=== PATIENT | male | born 1995 | race Caucasian/White ===

== ENCOUNTER 2016-10-17 19:51 | Emergency (ER) | payer OTHER ==
[~2016-10-17] VITALS: Wt 69.5 kg
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
[2016-10-17] MEDS ORDERED: IOHEXOL 300MG/ML 150 ML BTL ONE (22:34)
[2016-10-17] MEDS ORDERED: SOD CHLORIDE 0.9% 100 ML ONE (22:34)
[2016-10-17 22:38] LABS: CALCIUM 9.3 mg/dl (8.4-10.2); CREATININE 0.75 mg/dl (0.61-1.24); POTASSIUM 3.6 mmol/L (3.5-5.1)
[2016-10-17] MEDS ORDERED: HYDR-906 PO (22:57)
--- NOTE | 2016-10-18 00:14 | RADRPT ---
PROCEDURE: CT Abdomen and pelvis with contrast. CLINICAL INDICATION: Abdominal pain. TECHNIQUE: CT scan of the abdomen and pelvis with contrast was performed on a multi-detector high -resolution CT scanner. The patient was scanned following the uncomplicated administration of 90 cc of Omnipaque 300 intravenous contrast. Coronal and sagittal reformatted images were obtained from the axial source images. Images were reviewed on a high-resolution PACS workstation. One or more of the following dose reduction techniques were used: - Automated exposure control. - Adjustment of the mA and/or kV according to patient size. - Use of iterative reconstruction technique. Exam CTD/vol = 8.13 mGy. Total exam DLP = 434.86 mGy-cm. COMPARISON: None. FINDINGS: Evaluation of the lung bases demonstrates no pleural or parenchymal disease. Abdomen: The liver is normal in size. There is no focal mass or dilatation of the biliary tree. T he gallbladder is not distended. The spleen, pancreas and bilateral adrenal glands are within tim l limits. Bilateral kidneys are normal in size with symmetric enhancement. There is no focal mass, hydronephrosis or hydroureter. There is no retroperitoneal adenopathy. The abdominal aorta is of normal caliber. There is no abnormal bowel wall thickening or distension. There is no bowel obstruction or free air . A normal appendix is identified. There is no diverticulosis or diverticulitis. There is no asci bill. Pelvis: The bladder is contracted. The prostate and seminal vesicles are within normal limits. Th ere is no significant pelvic adenopathy or free fluid. Evaluation of the osseous structures demonstrates no suspicious lytic or blastic lesion. IMPRESSION: No acute abnormality identified within the abdomen and pelvis. .Sancho Stephen MD, MD Date Time Electronically viewed and signed by .Sancho Stephen MD, MD on 10/18/2016 00:14 .T/
[2016-10-18 00:51] VITALS: BP 145/80; PULSE 90; RESP 18
== END 2016-10-18 00:52 | disposition home or self-care (01) ==
LOC: FTE 19:51
DX: S20.222A Contusion of left back wall of thorax, initial encounter (principal); Y09 Assault by unspecified means
CPT/HCPCS: 74177; 80048; 99284; Q9967